=== PATIENT | female | born 1990 | race African-American/Black ===

== ENCOUNTER → 2016-08-19 | Outpatient (CLI) | payer OTHER ==
[~2016-08-19] MED LIST: IBUP60TA PO; PREN1TAB11 PO; TYLE167L PO; TYLE325T5 PO; VALT500T PO
[2016-08-19 21:54] LABS: FREE T4 1.92 NG/DL (0.76-1.46)
== END | disposition home or self-care (01) ==
LOC: M LRY 15:17
PROVIDERS: ATTEND Internal Medicine Endocrinology, Diabetes & Metabolism
DX: E05.00 Thyrotoxicosis with diffuse goiter without thyrotoxic crisis or storm (principal)

== ENCOUNTER 2017-02-12 15:16 | Emergency (ER) | payer OTHER ==
[~2017-02-12] VITALS: Ht 167.6 cm; Wt 88.0 kg
[2017-02-12 16:43] LABS: BASO # 0.2 K/mm3 (0.0-0.2); EOS # 0.3 K/mm3 (0.0-0.50); EOS % 4.3 % (0.0-3.0); LARGE UNSTAINED CELL # 0.2 K/mm3 (0.0-0.4); LARGE UNSTAINED CELL % 2.5 % (0.0-4.0); LYMPH # 2.4 K/mm3 (1.5-6.5); LYMPH % 31.8 % (24.0-44.0); MEAN CORPUSCULAR HEMOGLOBIN 26.8 pg (27.0-33.0); MEAN CORPUSCULAR HGB CONC 33.4 g/dl (32.0-36.5); MEAN CORPUSCULAR VOLUME 80.3 fl (80.0-96.0); MONO # 0.3 K/mm3 (0.0-0.8); MONO % 3.6 % (0.0-5.0); NEUTROPHILS # 4.3 K/mm3 (1.8-7.7); NEUTROPHILS % 55.8 % (36.0-66.0); PLATELET COUNT, AUTOMATED 298 k/mm3 (150-450); RED CELL DISTRIBUTION WIDTH 13.2 % (11.5-14.5); WHITE BLOOD COUNT 7.6 K/mm3 (4.0-10.0)
--- NOTE | 2017-02-12 17:30 | REP ---
Obstetric sonography: History: Supervision of back pain. Findings: Transabdominal and transvaginal scanning are performed. A viable single intrauterine gestation is seen in a free-floating lie. Latimer-rump length of the embryonic pole measures 13 mm. This corresponds with a gestational age estimate 7 weeks 4 days. heart rate is recorded at 168 beats per minute. A small subchorionic hemorrhage is identified superior to the gestational sac measuring 9 x 8 x 20 mm. There is a 1.6 cm complex cyst in the maternal right ovary. No gross anomaly. Impression: Viable single intrauterine gestation at 7 weeks 4 days by crown-rump length. KARMEN by sonography 09/27/2017. There is a 2 cm subchorionic hemorrhage. Signed by Júnior Young MD 02/15/2017 05:34 P
[2017-02-12 17:33] VITALS: BP 136/71
== END 2017-02-12 17:33 | disposition home or self-care (01) ==
LOC: M ED 15:16
DX: O36.8911 Maternal care for other specified fetal problems, first trimester, fetus 1 (principal); O26.891 Other specified pregnancy related conditions, first trimester; M54.5 Low back pain; Z79.899 Other long term (current) drug therapy; Z3A.01 Less than 8 weeks gestation of pregnancy

== ENCOUNTER 2017-05-07 10:26 | Emergency (ER) | payer OTHER ==
[~2017-05-07] VITALS: Ht 170.2 cm; Wt 92.3 kg
[2017-05-07] MEDS ORDERED: SYNT50TA PO (10:35)
[2017-05-07] MEDS ORDERED: PROMETHAZINE INJ 25 MG/ML VIAL (J2550) IV ONE (11:00)
[2017-05-07] MEDS ORDERED: NS 1,000 ML IV ONE (11:00)
[2017-05-07 12:18] LABS: BASO % 0.4 % (0.0-1.0); EOS # 0.1 10^3/uL (0.0-0.50); EOS % 0.8 % (0.0-3.0); IMMATURE GRANULOCYTE % 0.4 % (0-0); LYMPH # 0.4 10^3/uL (1.5-6.5); LYMPH % 5.2 % (24.0-44.0); MEAN CORPUSCULAR HEMOGLOBIN 26.8 pg (27.0-33.0); MEAN CORPUSCULAR HGB CONC 33.2 g/dl (32.0-36.5); MEAN CORPUSCULAR VOLUME 80.9 fl (80.0-96.0); MONO # 0.2 10^3/uL (0.0-0.8); MONO % 2.5 % (0.0-5.0); NEUTROPHILS # 7.5 10^3/uL (1.8-7.7); NEUTROPHILS % 90.7 % (36.0-66.0); PLATELET COUNT, AUTOMATED 232 10^3/uL (150-450); RED CELL DISTRIBUTION WIDTH 13.3 % (11.5-14.5); WHITE BLOOD COUNT 8.3 10^3/uL (4.0-10.0)
[2017-05-07 12:59] LABS: ALBUMIN 3.2 GM/DL (3.2-5.2); ALBUMIN/GLOBULIN RATIO 0.89 (1.00-1.93); ALKALINE PHOSPHATASE 55 U/L (45-117); ALT/SGPT 14 U/L (12-78); ANION GAP 10 MEQ/L (8-16); AST/SGOT 9 U/L (15-37); BILIRUBIN,DIRECT 0.1 MG/DL (0.0-0.2); BILIRUBIN,TOTAL 0.5 MG/DL (0.2-1.0); BLOOD UREA NITROGEN 5 MG/DL (7-18); CALCIUM LEVEL 8.7 MG/DL (8.5-10.1); CARBON DIOXIDE LEVEL 23 MEQ/L (21-32); CHLORIDE LEVEL 103 MEQ/L (98-107); CREATININE FOR GFR 0.54 MG/DL (0.55-1.02); GLOMERULAR FILTRATION RATE > 60.0 (>60); GLUCOSE, FASTING 87 MG/DL (70-105); POTASSIUM SERUM 3.8 MEQ/L (3.5-5.1); SODIUM LEVEL 136 MEQ/L (136-145); TOTAL PROTEIN 6.8 GM/DL (6.4-8.2)
--- NOTE | 2017-05-07 13:32 | REP ---
Obstetric sonography: History: Supervision of for anatomy. Cramping. Findings: Scanning through the gravid uterus demonstrates a viable single intrauterine gestation in a breech lie. motion is observed and heart rate is recorded at 168 beats per minute. An anterior grade 0 placenta is seen without evidence of previa or abruption. Amniotic fluid is subjectively normal. Closed cervical length is 3.9 cm. No extrauterine abnormality is observed. There has been appropriate interval growth. No anomaly is seen. face and profile, lungs, four-chamber heart with outflow tract views, kidneys, and spine are all less than optimally seen due to position. The following anatomic structures are identified and felt to be unremarkable: cranium, choroid plexus, cavum, cerebellum and posterior fossa, diaphragm, left-sided stomach, abdominal wall cord insertion, three-vessel umbilical cord, urinary bladder, upper and lower extremities. Biometry chart: BPD 4.6 cm 19 weeks 6 days Head circumference 17.4 cm 20 weeks 0 days Abdominal circumference 13.9 cm 19 weeks 2 days Femur length 2.9 cm 18 weeks 6 days Humeral length 3.0 cm 19 weeks 6 days HC/AC ratio normal 1.25. Cephalic index normal 0.72. Estimated weight 280 grams, 0 pounds 9 ounces, 43rd percentile for 19 weeks 2 days. Impression: Viable single intrauterine gestation at 19 weeks 4 days by today's composite sonographic criteria. Expected gestational age estimate based on prior sonography is 19 weeks 2 days. KARMEN by prior sonography September 29, 2017. anatomic survey less than complete. Appropriate interval growth. Signed by Júnior Young MD 05/07/2017 03:14 P
[2017-05-07] MEDS ORDERED: PHEN1SUP6 PR (14:05)
[2017-05-07] MEDS ORDERED: AMOX500C PO (14:05)
[2017-05-07 14:17] VITALS: BP 125/71
== END 2017-05-07 14:15 | disposition home or self-care (01) ==
LOC: M ED 10:26
DX: O99.512 Diseases of the respiratory system complicating pregnancy, second trimester (principal); J02.0 Streptococcal pharyngitis; O99.282 Endocrine, nutritional and metabolic diseases complicating pregnancy, second trimester; E86.0 Dehydration; Z3A.19 19 weeks gestation of pregnancy; Z79.899 Other long term (current) drug therapy

== ENCOUNTER 2017-06-30 15:42 | Emergency (ER) | payer OTHER ==
[~2017-06-30] VITALS: Ht 170.2 cm; Wt 97.7 kg
[~2017-06-30 15:42] MED LIST changes: +AMOX500C PO; +PHEN1SUP6 PR; +SYNT50TA PO
[2017-06-30 16:49] LABS: BASO # 0.1 10^3/uL (0.0-0.2); BASO % 0.8 % (0.0-1.0); EOS # 0.4 10^3/uL (0.0-0.50); EOS % 4.6 % (0.0-3.0); IMMATURE GRANULOCYTE % 0.6 % (0-0); LYMPH # 2.2 10^3/uL (1.5-6.5); LYMPH % 26.1 % (24.0-44.0); MEAN CORPUSCULAR HEMOGLOBIN 26.8 pg (27.0-33.0); MEAN CORPUSCULAR HGB CONC 32.9 g/dl (32.0-36.5); MEAN CORPUSCULAR VOLUME 81.6 fl (80.0-96.0); MONO # 0.4 10^3/uL (0.0-0.8); MONO % 5.1 % (0.0-5.0); NEUTROPHILS # 5.2 10^3/uL (1.8-7.7); NEUTROPHILS % 62.8 % (36.0-66.0); PLATELET COUNT, AUTOMATED 270 10^3/uL (150-450); RED CELL DISTRIBUTION WIDTH 13.2 % (11.5-14.5); WHITE BLOOD COUNT 8.3 10^3/uL (4.0-10.0)
[2017-06-30 17:19] LABS: ALBUMIN 3.1 GM/DL (3.2-5.2); ALBUMIN/GLOBULIN RATIO 0.72 (1.00-1.93); ALKALINE PHOSPHATASE 97 U/L (45-117); ALT/SGPT 16 U/L (12-78); ANION GAP 9 MEQ/L (8-16); AST/SGOT 11 U/L (7-37); BILIRUBIN,DIRECT < 0.1 MG/DL (0.0-0.2); BILIRUBIN,TOTAL 0.3 MG/DL (0.2-1.0); BLOOD UREA NITROGEN 5 MG/DL (7-18); CALCIUM LEVEL 9.1 MG/DL (8.5-10.1); CARBON DIOXIDE LEVEL 25 MEQ/L (21-32); CHLORIDE LEVEL 104 MEQ/L (98-107); CREATININE FOR GFR 0.51 MG/DL (0.55-1.02); FREE T4 0.99 NG/DL (0.76-1.46); GLOMERULAR FILTRATION RATE > 60.0 (>60); GLUCOSE, FASTING 78 MG/DL (70-105); POTASSIUM SERUM 3.8 MEQ/L (3.5-5.1); SODIUM LEVEL 138 MEQ/L (136-145); TOTAL PROTEIN 7.4 GM/DL (6.4-8.2)
[2017-06-30 17:40] VITALS: BP 123/75
--- NOTE | 2017-06-30 19:07 | ECGEPIP ---
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
== END 2017-06-30 17:55 | disposition home or self-care (01) ==
LOC: M ED 15:42
DX: O99.89 Other specified diseases and conditions complicating pregnancy, childbirth and the puerperium (principal); R07.89 Other chest pain; E07.9 Disorder of thyroid, unspecified; Z3A.27 27 weeks gestation of pregnancy; Z79.899 Other long term (current) drug therapy; Z86.79 Personal history of other diseases of the circulatory system

== ENCOUNTER 2017-08-30 19:14 | Outpatient (CLI) | payer OTHER ==
[2017-08-30 21:08] LABS: APPEARANCE, URINE CLEAR (CLEAR); BACTERIA, URINE AUTO NEGATIVE (NEGATIVE); BILIRUBIN, URINE AUTO NEGATIVE (NEGATIVE); BLOOD, URINE BLOOD NEGATIVE (NEGATIVE); COLOR, URINE YELLOW (YELLOW); GLUCOSE, URINE (UA) AUTO NEGATIVE (NEGATIVE); KETONE, URINE AUTO NEGATIVE (NEGATIVE); LEUKOCYTE ESTERASE, URINE AUTO TRACE (NEGATIVE); NITRITE, URINE AUTO NEGATIVE (NEGATIVE); PROTEIN, URINE AUTO NEGATIVE (NEGATIVE); RBC, URINE AUTO 0 /HPF (0-3); SPECIFIC GRAVITY URINE AUTO 1.014 (1.002-1.035); SQUAMOUS EPITHELIAL CELL UR AU 1 /HPF (0-6); UROBILINOGEN, URINE AUTO 0.2 mg/dL (0.0-2.0); WBC, URINE AUTO 1 /HPF (0-3)
== END 2017-08-30 20:50 | disposition home or self-care (01) ==
LOC: M LDO 19:14
DX: O47.03 False labor before 37 completed weeks of gestation, third trimester (principal); Z3A.35 35 weeks gestation of pregnancy; M06.9 Rheumatoid arthritis, unspecified; B00.9 Herpesviral infection, unspecified; O99.283 Endocrine, nutritional and metabolic diseases complicating pregnancy, third trimester; O98.513 Other viral diseases complicating pregnancy, third trimester; O26.893 Other specified pregnancy related conditions, third trimester
CPT/HCPCS: 59025; 81001

== ENCOUNTER 2017-09-22 07:16 | Inpatient (IN) | payer OTHER ==
[2017-09-22] MEDS: LEVOTHYROXINE 50MCG TABLET (0.05MG) PO (06:00)
[2017-09-22 08:12] LABS: HEMATOCRIT 37.4 % (36.0-47.0); HEMOGLOBIN 12.5 g/dl (12.0-16.0); MEAN CORPUSCULAR HEMOGLOBIN 26.7 pg (27.0-33.0); MEAN CORPUSCULAR HGB CONC 33.4 g/dl (32.0-36.5); MEAN CORPUSCULAR VOLUME 79.9 fl (80.0-96.0); PLATELET COUNT, AUTOMATED 265 10^3/uL (150-450); RED BLOOD COUNT 4.68 10^6/uL (4.00-5.40); RED CELL DISTRIBUTION WIDTH 14.5 % (11.5-14.5)
[2017-09-22 08:30] LABS: AMPHETAMINES URINE REFLEX NEGATIVE (NEGATIVE); BARBITURATES URINE REFLEX NEGATIVE (NEGATIVE); BENZODIAZEPINES URINE REFLEX NEGATIVE (NEGATIVE); CANNABINOIDS URINE REFLEX NEGATIVE (NEGATIVE); COCAINE METABOLITE URINE REFLE NEGATIVE (NEGATIVE); METHADONE URINE REFLEX NEGATIVE (NEGATIVE); OPIATES URINE REFLEX NEGATIVE (NEGATIVE); PHENCYCLIDINE URINE REFLEX NEGATIVE (NEGATIVE)
[2017-09-22] MEDS ORDERED: FENTANYL 2MCG/ML ROPIVACAINE 0.2% IN 0.9% NACL 200ML IVBAG As Ordered (08:42)
[2017-09-22] MEDS: PRENATAL VITAMINS CHEWABLE TABLET PO (09:00)
[2017-09-22] MEDS: LACTATED RINGER'S 1000 ML IV (09:29)
[2017-09-22] MEDS ORDERED: EPIDURAL/PCA KEYS XX (09:30)
[2017-09-22] MEDS ORDERED: FENTANYL/ROPIVACAINE/NACL BAG 200 ML EPIDURAL (09:30)
[2017-09-22] MEDS ORDERED: ePHEDrine SULFATE 25 MG/5 ML(5MG/ML) SYRINGE IV (09:30)
[2017-09-22] MEDS ORDERED: NALOXONE INJ 0.4 MG/1 ML VIAL (J2310) IV (09:30)
[2017-09-22] MEDS ORDERED: ONDANSETRON 4MG/2ML VIAL (J2405) IV ×2 (09:30→11:30)
[2017-09-22] MEDS ORDERED: EPIDURAL COMMENT XX (09:30)
[2017-09-22] MEDS ORDERED: OXYTOCIN 30 UNITS IN 0.9% NaCl 500ML IV BAG (J2590) As Ordered (09:30)
[2017-09-22] MEDS ORDERED: diphenhydrAMINE INJ 50MG/ML VIAL (J1200) IV (09:30)
[2017-09-22] MEDS ORDERED: REFRIGERATOR IV KEYS XX (09:30)
[2017-09-22] MEDS: OXYTOCIN DRIP 30 UNITS in APPROPRIATE DILUENT 1 EA IV (11:25)
[2017-09-22] MEDS ORDERED: ANUSOL HC CREAM 30GM TOP (11:30)
[2017-09-22] MEDS ORDERED: METHYLERGONOVINE MALEATE 0.2 MG TAB PO (11:30)
[2017-09-22] MEDS ORDERED: DIBUCAINE 1% OINTMENT 30GM TOP (11:30)
[2017-09-22] MEDS ORDERED: DOCUSATE SODIUM 100 MG CAP PO (11:30)
[2017-09-22] MEDS ORDERED: PROMETHAZINE 25 MG TAB PO (11:30)
[2017-09-22] MEDS ORDERED: ACETAMINOPHEN 500 MG TAB PO (11:30)
[2017-09-22] MEDS: IBUPROFEN 600 MG TAB PO ×2 (13:46→21:59)
[2017-09-23] MEDS: LEVOTHYROXINE 50MCG TABLET (0.05MG) PO (06:48)
[2017-09-23] MEDS: PRENATAL VITAMINS CHEWABLE TABLET PO (08:07)
== END 2017-09-23 14:19 | disposition home or self-care (01) | DRG 775 ==
LOC: M LDO 07:16 → M LDI 07:54 → M OBS 13:16
PROVIDERS: Obstetrics & Gynecology
PROC: 10E0XZZ Delivery of Products of Conception, External Approach (ICD-10-PCS; principal; 2017-09-22)
PROC: 10907ZC Drainage of Amniotic Fluid, Therapeutic from Products of Conception, Via Natural or Artificial Opening (ICD-10-PCS; 2017-09-22)
DX: O99.214 Obesity complicating childbirth (principal); Z37.0 Single live birth; E66.9 Obesity, unspecified; O99.284 Endocrine, nutritional and metabolic diseases complicating childbirth; E89.0 Postprocedural hypothyroidism; O26.03 Excessive weight gain in pregnancy, third trimester; Z3A.39 39 weeks gestation of pregnancy; Z68.37 Body mass index [BMI] 37.0-37.9, adult

== ENCOUNTER → 2018-03-07 | Outpatient (REF) | payer OTHER | LOC: M SFHCLERA 12:21 | DX: J02.9 Acute pharyngitis, unspecified (principal) ==